=== PATIENT | male | born 1985 | race Two or more races ===

== ENCOUNTER 2020-01-21 10:55 | Emergency (ER) | payer MEDICAID ==
[~2020-01-21] VITALS: Ht 177.8 cm; Wt 75.0 kg
[2020-01-21 11:02] VITALS: BP 126/81
[2020-01-21] MEDS ORDERED: KETOROLAC 30MG/ML VIAL IM ONE (11:30)
== END 2020-01-21 12:20 | disposition home or self-care (01) ==
LOC: ER 10:55
DX: M54.6 Pain in thoracic spine (principal)
CPT/HCPCS: 71045; 96372; 99283; J1885

== ENCOUNTER 2021-08-16 03:58 | Emergency (ER) | payer MEDICAID ==
[~2021-08-16] VITALS: Ht 177.8 cm; Wt 77.0 kg
[2021-08-16 04:06] VITALS: BP 135/89
[2021-08-16] MEDS ORDERED: TETANUS, DIPHTHERIA, PERTUSSIS VAC/PF 0.5ML (>10YR OLD) IM ONE ×2 (04:45→05:00)
[2021-08-16] MEDS ORDERED: ACETAMINOPHEN WITH CODEINE 300/30MG TABLET PO ONE (04:45)
[2021-08-16] MEDS ORDERED: IBUP-2029 MT (05:18)
== END 2021-08-16 06:21 | disposition home or self-care (01) ==
LOC: ER 04:08
DX: S90.121A Contusion of right lesser toe(s) without damage to nail, initial encounter (principal); W22.09XA Striking against other stationary object, initial encounter; Y93.01 Activity, walking, marching and hiking; Y92.9 Unspecified place or not applicable; S91.204A Unspecified open wound of right lesser toe(s) with damage to nail, initial encounter
CPT/HCPCS: 73660; 90471; 90715; 99283

== ENCOUNTER 2021-08-16 07:53 | Emergency (ER) | payer MEDICAID ==
[~2021-08-16 07:53] MED LIST: IBUP-2029 MT
== END 2021-08-16 09:42 | disposition left against medical advice (07) ==
LOC: ER 07:53
DX: Z53.21 Procedure and treatment not carried out due to patient leaving prior to being seen by health care provider (principal)